=== PATIENT | female | born 1955 | race Caucasian/White ===

== ENCOUNTER 2019-10-08 16:25 | Emergency (ER) | payer BC ==
[~2019-10-08] VITALS: Ht 165.1 cm; Wt 52.6 kg
--- NOTE | 2019-10-08 16:50 | NUR ---
[facility] unit 10X98 at bedside with patient.
[2019-10-08] MEDS ORDERED: IBUPROFEN 400 MG TABLET PO ONE (17:00)
[2019-10-08] MEDS ORDERED: IBUPROFEN 400 MG TABLET ONE (17:01)
--- NOTE | 2019-10-08 17:16 | NUR ---
Patient discharged to home in stable conditon. Written and verbal after care instructions given. Patient verbalizes understanding of instructions. Patient ambulated with stable gait.
[2019-10-08 17:17] VITALS: BP 135/95
== END 2019-10-08 17:17 | disposition home or self-care (01) ==
LOC: ER 16:27
DX: S70.02XA Contusion of left hip, initial encounter (principal); X58.XXXA Exposure to other specified factors, initial encounter; Y93.89 Activity, other specified; Y92.89 Other specified places as the place of occurrence of the external cause; Y99.8 Other external cause status
CPT/HCPCS: 73502; A4663